=== PATIENT | male | born 1960 | race Caucasian/White ===

== ENCOUNTER 2021-03-23 11:10 | Inpatient (IN) | payer OTHER ==
[~2021-03-23] VITALS: Ht 180.3 cm; Wt 109.0 kg
[2021-03-23 12:21] LABS: RED BLOOD COUNT 4.96 M/UL (4.20-5.50); WHITE BLOOD COUNT 3.2 K/UL (4.5-11.0)
[2021-03-23 12:46] LABS: BUN/CREATININE RATIO 20 (0-10)
[2021-03-23] MEDS ORDERED: COREG12.5 MG PO (15:37)
[2021-03-23] MEDS ORDERED: COZAAR 50MG TAB50 MG PO (15:37)
[2021-03-24 04:10] LABS: RED BLOOD COUNT 4.67 M/UL (4.20-5.50); WHITE BLOOD COUNT 2.9 K/UL (4.5-11.0)
[2021-03-25 04:04] LABS: RED BLOOD COUNT 4.4 M/UL (4.20-5.50)
[2021-03-25 04:45] LABS: BUN/CREATININE RATIO 28 (0-10)
[2021-03-26 03:50] LABS: HEMOGLOBIN 14.2 gm/dl (14.0-17.5); RED BLOOD COUNT 4.49 M/UL (4.20-5.50); WHITE BLOOD COUNT 3.4 K/UL (4.5-11.0)
[2021-03-26 04:47] LABS: BUN/CREATININE RATIO 29 (0-10)
[2021-03-26] MEDS ORDERED: AZITHROMYCIN250 MG PO (09:32)
[2021-03-26] MEDS ORDERED: OMNICEF 300 MG300 MG PO (09:32)
[2021-03-26] MEDS ORDERED: FISH OIL EC 1,1 EACH PO (09:32)
[2021-03-26] MEDS ORDERED: ASPIRIN 325MG325 MG PO (09:32)
[2021-03-26] MEDS ORDERED: DECADRON6 MG PO (09:33)
[2021-03-26] MEDS ORDERED: VENTOLIN HFA 66.7 GM INH (09:49)
== END 2021-03-26 15:15 | disposition home or self-care (01) | DRG 177 ==
LOC: ER1 11:10 → CDU 14:20 → MED SURG 4 14:20
PROVIDERS: Nurse Practitioner; ADMIT Internal Medicine
PROC: XW13325 Transfusion of Convalescent Plasma (Nonautologous) into Peripheral Vein, Percutaneous Approach, New Technology Group 5 (ICD-10-PCS; principal; 2021-03-26)
PROC: XW033E5 Introduction of Remdesivir Anti-infective into Peripheral Vein, Percutaneous Approach, New Technology Group 5 (ICD-10-PCS; principal; 2021-03-26)
DX: U07.1 COVID-19 (principal); J12.82 Pneumonia due to coronavirus disease 2019; I95.1 Orthostatic hypotension; T38.0X1A Poisoning by glucocorticoids and synthetic analogues, accidental (unintentional), initial encounter; D72.819 Decreased white blood cell count, unspecified; D69.6 Thrombocytopenia, unspecified; I10 Essential (primary) hypertension; R07.9 Chest pain, unspecified; Y92.89 Other specified places as the place of occurrence of the external cause; Z86.73 Personal history of transient ischemic attack (TIA), and cerebral infarction without residual deficits
CPT/HCPCS: ECHO; 36415; 36600; 70450; 70551; 71045; 71275; 80048; 80053; 80061; 82550; 82553; 82803; 82962; 83605; 83690; 83874; 84484; 85025; 85027; 85379; 85610; 85730; 86900; 86901; 86927; 87040; 93005; 93270; 93306; 93970; 96374; 96375; 96376; 99285; G0378; J0696; J1644; J2405; J7030; J7050; M0245; Q9967